=== PATIENT | male | born 1990 | race Caucasian/White ===

== ENCOUNTER 2016-08-03 19:53 | Emergency (ER) | payer MEDICAID ==
[~2016-08-03 19:53] MED LIST: COLACE100 MG PO; NOR10T PO
[2016-08-04] VITALS: BP 138/80
== END 2016-08-04 | disposition home or self-care (01) ==
LOC: ED 19:53
DX: N43.3 Hydrocele, unspecified (principal)
CPT/HCPCS: 87491; 87591; J0696; J1885; Q0092

== ENCOUNTER 2016-08-20 11:15 | Emergency (ER) | payer MEDICAID ==
[~2016-08-20] VITALS: Ht 177.8 cm; Wt 106.6 kg
[2016-08-20 13:09] VITALS: BP 109/57
== END 2016-08-20 13:09 | disposition home or self-care (01) ==
LOC: ED 11:15
DX: N50.812 Left testicular pain (principal)

== ENCOUNTER 2018-06-05 11:48 | Emergency (ER) | payer SELFPAY ==
[~2018-06-05] VITALS: Ht 180.3 cm; Wt 99.3 kg
[2018-06-05 11:55] VITALS: Ht 180.3 cm; Wt 99.3 kg
[2018-06-05 14:05] LABS: BASOPHIL % 0.9 % (0-2); PLATELET COUNT 253 x10^3mcL (130-400); RED CELL DISTRIBUTION WIDTH 12.9 % (11.5-14.5)
[2018-06-05 14:21] LABS: CALCIUM 8.4 mg/dL (8.5-10.1); CARBON DIOXIDE 26.7 mmol/L (21-32); CHLORIDE SERUM 102 mmol/L (98-107); CREATININE SERUM 0.7 mg/dL (0.7-1.3); GFR1 > 60 mL/min; GLUCOSE SERUM 98 mg/dL (74-106); POTASSIUM SERUM 3.7 mmol/L (3.5-5.1); SODIUM SERUM 140 mmol/L (136-145)
[2018-06-05 14:23] LABS: ALKALINE PHOSPHATASE 126 U/L (46-116); ALT/SGPT 493 U/L (16-63); AST/SGOT 540 U/L (15-37); BILIRUBIN TOTAL 0.59 mg/dL (0.20-1.00); LIPASE 125 IU/L (73-393)
[2018-06-05 14:28] LABS: TOTAL PROTEIN, SERUM 8.6 g/dL (6.4-8.2)
[2018-06-05 16:49] VITALS: BP 149/67
== END 2018-06-05 16:49 | disposition home or self-care (01) ==
LOC: ED 11:48
PROVIDERS: Emergency Medicine
DX: S60.221A Contusion of right hand, initial encounter (principal); K70.9 Alcoholic liver disease, unspecified; W18.30XA Fall on same level, unspecified, initial encounter; Y93.89 Activity, other specified; Y92.89 Other specified places as the place of occurrence of the external cause; Y99.8 Other external cause status
CPT/HCPCS: 36415; 90715; Q0092; Q0162

== ENCOUNTER 2018-11-07 12:05 | Emergency (ER) | payer MEDICAID ==
[~2018-11-07] VITALS: Ht 180.3 cm; Wt 104.3 kg
[2018-11-07 12:13] VITALS: Ht 180.3 cm; Wt 104.3 kg
[2018-11-07 14:50] VITALS: BP 147/84
== END 2018-11-07 14:50 | disposition home or self-care (01) ==
LOC: ED 12:05
DX: S93.402A Sprain of unspecified ligament of left ankle, initial encounter (principal); Z90.49 Acquired absence of other specified parts of digestive tract; X50.1XXA Overexertion from prolonged static or awkward postures, initial encounter; Y93.89 Activity, other specified; Y92.89 Other specified places as the place of occurrence of the external cause; Y99.8 Other external cause status
CPT/HCPCS: J1885; Q0092

== ENCOUNTER 2018-11-08 14:17 | Emergency (ER) | payer MEDICAID ==
[~2018-11-08] VITALS: Ht 177.8 cm; Wt 103.4 kg
[2018-11-08 14:20] VITALS: Ht 177.8 cm; Wt 103.4 kg
[2018-11-08 15:04] VITALS: BP 145/89
== END 2018-11-08 15:04 | disposition home or self-care (01) ==
LOC: ED 14:17
DX: S93.402D Sprain of unspecified ligament of left ankle, subsequent encounter (principal); R03.0 Elevated blood-pressure reading, without diagnosis of hypertension; Z13.828 Encounter for screening for other musculoskeletal disorder; X58.XXXD Exposure to other specified factors, subsequent encounter

== ENCOUNTER 2018-11-09 15:45 | Emergency (ER) | payer MEDICAID ==
[~2018-11-09] VITALS: Ht 180.3 cm; Wt 103.5 kg
[2018-11-09 15:52] VITALS: BP 122/64; Ht 180.3 cm; Wt 103.5 kg
== END 2018-11-09 16:53 | disposition home or self-care (01) ==
LOC: ED 15:45
DX: S99.912D Unspecified injury of left ankle, subsequent encounter (principal); X58.XXXD Exposure to other specified factors, subsequent encounter

== ENCOUNTER 2018-12-12 12:58 | Inpatient (IN) | payer MEDICAID ==
[~2018-12-12] VITALS: Ht 180.3 cm; Wt 105.7 kg
[2018-12-12 13:16] VITALS: Ht 180.3 cm; Wt 105.7 kg
--- NOTE | 2018-12-12 13:30 | NUR ---
PT BIB SELF ABD PAIN X 2 WKS STS HAD FOOD POISON AWAITING FOR DR TO [facility]
--- NOTE | 2018-12-12 13:51 | NUR ---
DR COREY AT BEDSIDE TO [facility]
--- NOTE | 2018-12-12 14:00 | NUR ---
TAKEN TO RADIOLOGY FOR CT
--- NOTE | 2018-12-12 14:12 | NUR ---
MEDICATED PT FOR PAIN. PLEASE SEE EMAR.
--- NOTE | 2018-12-12 14:15 | NUR ---
PROVIDED URINAL AT BEDSIDE FOR UA.
[2018-12-12 14:32] LABS: BASOPHIL % 0.7 % (0-2); PLATELET COUNT 181 x10^3mcL (130-400); RED CELL DISTRIBUTION WIDTH 13.7 % (11.5-14.5)
[2018-12-12 14:45] LABS: CHLORIDE SERUM 102 mmol/L (98-107); CREATININE SERUM 0.8 mg/dL (0.7-1.3); GFR1 > 60 mL/min; GLUCOSE SERUM 93 mg/dL (74-106); POTASSIUM SERUM 4.1 mmol/L (3.5-5.1); SODIUM SERUM 141 mmol/L (136-145)
[2018-12-12 14:49] LABS: ALBUMIN 3.9 g/dL (3.4-5.0); ALKALINE PHOSPHATASE 125 U/L (46-116); ALT/SGPT 308 U/L (16-63); AST/SGOT 249 U/L (15-37); BILIRUBIN TOTAL 1.3 mg/dL (0.20-1.00); LIPASE 118 IU/L (73-393); TOTAL PROTEIN, SERUM 8.1 g/dL (6.4-8.2)
[2018-12-12 15:01] LABS: UA SPECIFIC GRAVITY 1.015 (1.005-1.035); microscopic required? YES; urine erythrocyte NEGATIVE (NEGATIVE)
[2018-12-12 15:09] LABS: AMPHETAMINE QUAL UR NONE DETECTED (See below)
--- NOTE | 2018-12-12 16:12 | NUR ---
PT ADMIT TO MD ROOM 257B GAVE REPORT TO BLANQUITA
--- NOTE | 2018-12-12 16:40 | NUR ---
PT C/O OF ABD PAIN 02/17. GAVE TORADOL ORDERED. WILL CONTINUE TO MONITOR.
[2018-12-12 16:46] VITALS: BP 129/82
--- NOTE | 2018-12-12 16:56 | NUR ---
RECEIVED PT FROM ER, PT ADMIT FOR RECTAL BLEED, ABD PAIN, PT IS A/O X4, VERBAL RESPONSIVE, ABLE TO TELL WHAT HE NEEDS. LUNG SOUND CLEAR BILATERAL, NO COUGH, NO SOB, PT DENY ANY CHEST PAIN, BOWEL SOUND PRESENT ALL 4 QUADRANTS, NO DISTENTION, PT C/O ABD PAIN AT MID AND RADIATE TO RIGHT UPPER QUARANT, ALSO PT COMPLAIN HAD BLACK STOOL DAYS AGO. PEDAL PULSE PRESENT BOTH FEET, NO EDEMA, IV AT LEFT AC, NO LEAKING, NO INFILTRATION.ALL ADLS ASSIST, ALL NEED MET, CALL LIGHT IN REACH, WILL CONTINUE TO MONITOR.
--- NOTE | 2018-12-12 17:22 | NUR ---
PT EXPRESSED MINIMAL RELIEF OF ABD PAIN 10/18. REFUSED PAIN MED. WILL CONTINUE TO MONITOR.
--- NOTE | 2018-12-12 18:24 | NUR ---
PT RESTING IN BED TALKING ON THE PHONE. PT STATES ABD PAIN IS TOLERABLE AT THIS TIME. IV INTACT AND PATENT. CALL LIGHT WITHIN REACH. WILL CONTINUE TO MONITOR.
--- NOTE | 2018-12-12 19:30 | NUR ---
RECIEVED PT FROM DAY NURSE. PT RESTING IN BED COMFORTABLY. DENIES PAIN AT THIS TIME. A/O X4, CALM AND COOPERATIVE. MS PT, DENIES CP, N/V, DIZZINESS, AND PALPATATIONS. PALPABLE PULSES, NO EDEMA NOTED. BREATHING EVEN AND UNLABORED, DENIES SOB. ABD SOFT AND ROUND, EPIGASTRIC PAIN TO PALPATION. LAC IV, CDI AND INFUSING. BED AT LOWEST POSITION, CALL LIGHT WITHIN REACH, WILL CONTINUE TO MONITOR.
[2018-12-12 20:41] VITALS: BP 105/56
--- NOTE | 2018-12-13 | NUR ---
PT RESTING IN BED AT THIS TIME. DENIES PAIN OR DISCOMFORT. BREATHING E/U ON RA. NO SIGNS OF ACUTE DISTRESS AT THIS TIME. BED AT LOWEST POSITION. CALL LIGHT WITHIN REACH. WILL CONTINUE TO MONITOR.
[2018-12-13 05:33] VITALS: BP 119/73
--- NOTE | 2018-12-13 06:39 | NUR ---
PT RESTING IN BED COMFORTABLY. NO S/S OF PAIN AT THIS TIME. BREATHING E/U. NO SIGNIFICANT CHANGES THIS THIS. BED AT LOWEST POSITION. CALL LIGHT WITHIN REACH. WILL ENDORSE TO DAY NURSE.
[2018-12-13 06:51] LABS: BASOPHIL % 0.4 % (0-2); PLATELET COUNT 146 x10^3mcL (130-400); RED CELL DISTRIBUTION WIDTH 13.1 % (11.5-14.5)
[2018-12-13 07:01] LABS: CALCIUM 8.5 mg/dL (8.5-10.1); CARBON DIOXIDE 24.5 mmol/L (21-32); CHLORIDE SERUM 104 mmol/L (98-107); CREATININE SERUM 0.8 mg/dL (0.7-1.3); GFR1 > 60 mL/min; GLUCOSE SERUM 79 mg/dL (74-106); POTASSIUM SERUM 3.4 mmol/L (3.5-5.1); SODIUM SERUM 140 mmol/L (136-145)
--- NOTE | 2018-12-13 07:30 | NUR ---
PT ENDORSE TO ME THIS MORNING. LAYING IN BED RESTING, AA/ OX4, BREATHING EVEN AND AND UNLABORED ON RA, NO ACUTE RESP DISTRESS OR SOB NOTED. MEDSURG,DENIES ANY CP OR PRESSURE. LAST BM 12/12 FORMED PER NIGHT NURSE. VOIDS FREELY. AMB. IV TO THE RAC INTACT AND PATENT, INFUSING AT 100ML/ HR, NO REDNESS OR SWELLING NOTED, WILL CONTINUE TO MONITOR.
[2018-12-13 09:20] VITALS: BP 126/74
--- NOTE | 2018-12-13 09:29 | NUR ---
PT C/O OF ABD PAIN, MEDICATED PER EMAR.
--- NOTE | 2018-12-13 10:30 | NUR ---
PT LAYING IN BED RESTING, TOLERATED 100% OF BF, NO N/V NOTED. WILL CONTINUE TO MONITOR.
--- NOTE | 2018-12-13 14:30 | NUR ---
Discount pharmacy card and list to low cost medical clinics given to patient by Tip Caruso.
[2018-12-13 17:23] VITALS: BP 113/72
--- NOTE | 2018-12-13 19:34 | NUR ---
NO ACUTE CHANGES AT THIS TIME. WILL ENDORSE TO INCOMING RN.
--- NOTE | 2018-12-13 20:00 | NUR ---
RECEIVED PT IN BED, RESTING QUIETLY. A/O X4. RESP. EVEN AND UNLABORED. ON ROOM AIR, NO ACUTE DISTRESS NOTED. AFEBRILE AND VITAL SIGNS STABLE. DENIES CP , ABD. PAIN OR ANY DISCOMFORT AT THIS TIME. IVF, NS AT 100ML/HR, INTACT AND INFUSING VIA LAC, SITE CLEAR. AMBULATORY. NO COMPLAINTS NOTED AT THIS TIME. CALL LIGHT WITHIN REACH. WILL CONTINUE TO MONITOR.
[2018-12-13 20:18] VITALS: BP 122/76
--- NOTE | 2018-12-13 21:10 | NUR ---
COMPLAINED OF ABD. PAIN, 5/10, MEDICATED WITH TORADOL IV ORDERED. WILL CONTINUE TO MONITOR.
--- NOTE | 2018-12-13 22:10 | NUR ---
FOR PROCEDURE IN AM. CONSENT OBTAINED FROM PT. PT ALSO INSTRUCTED TO MAINTAIN NPO AFTER MN. PT VERBALIZED UNDERSTANDING. WILL CONTINUE TO MONITOR.
--- NOTE | 2018-12-14 00:02 | NUR ---
PT DOOZING OFF AND ON AT THIS TIME. STATES PAIN RELIEF. CALL LIGHT WITHIN REACH. WILL CONTINUE TO MONITOR.
--- NOTE | 2018-12-14 02:06 | NUR ---
RESTING QUIETLY IN BED, WITH EYES CLOSED, APPEARS ASLEEP, EASILY AROUSABLE. RESP. EVEN AND UNLABORED. NO ACUTE DISTRESS NOTED. IVF INTACT AND INFUSING WELL, SITE CLEAR. CALL LIGHT WITHIN REACH. WILL CONTINUE TO MONITOR.
[2018-12-14 05:44] VITALS: BP 127/73
--- NOTE | 2018-12-14 06:32 | NUR ---
SLEPT WELL. NO COMPLAINTS NOTED AT THIS TIME. AFEBRILE AND VITAL SIGNS STABLE.RESP. EVEN AND UNLABORED. NO ACUTE DISTRESS NOTED. NPO MAINTAINED. FOR PROCEDURE THIS AM. IVF INTACT AND INFUSING WELL. WILL ENDORSE TO INCOMING NURSE.
[2018-12-14 06:36] LABS: BASOPHIL % 0.4 % (0-2); PLATELET COUNT 157 x10^3mcL (130-400); RED CELL DISTRIBUTION WIDTH 13.3 % (11.5-14.5)
[2018-12-14 06:53] LABS: CALCIUM 9.2 mg/dL (8.5-10.1); CARBON DIOXIDE 28.3 mmol/L (21-32); CHLORIDE SERUM 103 mmol/L (98-107); CREATININE SERUM 0.9 mg/dL (0.7-1.3); GFR1 > 60 mL/min; GLUCOSE SERUM 84 mg/dL (74-106); SODIUM SERUM 140 mmol/L (136-145)
--- NOTE | 2018-12-14 07:30 | NUR ---
RECEIVED PATIENT IN BED APPEARS TO BE RESTING, AROUSED EASILY TO NAME. NPO FOR EGD THIS AM. PATIENT DENIES ANY RECTAL BLEEDING OR PAIN AT THIS TIME. IVF INFUSIG WELL TO LEFT A/C. WILL CONTINUE TO MONITOR.
--- NOTE | 2018-12-14 07:42 | NUR ---
PATIENT GOING DOWN TO GI LAB FOR EGD VIA [facility] AT THIS TIME. IV HEPLOCKED, PATIENT DENIES ANY PAIN OR RECTAL BLEEDING. NPO SINCE MIDNOC. WILL CONTINUE TO MONITOR UPON RETURN TO THE FLOOR
--- NOTE | 2018-12-14 09:32 | NUR ---
PATIENT RETURNED FROM G.I. LAB VIA GURNEY. AWAKE, ALERT DENIES ANY PAIN OR DISCOMFORT. NO N/V OR RECTAL BLEEDING NOTED. PATIENT NPO UNTIL LUNCH TODAY. IVF DC'D ORDERED. PATIENT INSTRUCTED TO CALL FOR ASSIST.
[2018-12-14 09:51] LABS: ALBUMIN 3.5 g/dL (3.4-5.0); BILIRUBIN DIRECT 0.78 mg/dL (0.0-0.2); BILIRUBIN TOTAL 1.6 mg/dL (0.20-1.00); TOTAL PROTEIN, SERUM 7.4 g/dL (6.4-8.2)
[2018-12-14 10:18] VITALS: BP 120/79
--- NOTE | 2018-12-14 13:30 | NUR ---
PATIENT'S PLAN OF CARE WAS DISCUSSED AND REVIEWED WITH RETAIL TEAM LEADER:JAMAAL ALLISON. I HAVE REVIEWED THE DATA COLLECTION BY RETAIL TEAM LEADER (NAME):JAMAAL ALLISON ENTERED ON (DATE/TIME):12/14/18. I CONCUR WITH THE DATA AND ANY EXCEPTIONS OR COMMENTS ARE LISTED BELOW:
--- NOTE | 2018-12-14 14:21 | NUR ---
1. Recommend continuing regular diet as tolerated.
--- NOTE | 2018-12-14 14:21 | NUR ---
Initial Nutrition Assessment: 257/B BERENICE ARGUELLES HR Dx: Rectal bleed, abd pain PMHx: none PSHx: Cholecystectomy Labs: AST 328H, ALT 397H Meds: Pepcid, toradol, zofran Diet: Regular PO Intake: (12/12) 50% lunch, 100% breakfast (on clear liquid) Ht: 180.34 cm (71") Wt: 105.6 kg (232#) BMI: 32.5 kg/m2Bed scale: 105.5 kg IBW: 172# (78 kg) %IBW: 134 UBW: unable to access Age: 28/M Food Allergies: NKFA Skin: intact Vipin: 23 Edema: none GI: Last BM: 12/12 Trigger: N/V/D >3d, poor PO >3d Per H&P, Pt is a 28-year old male who was seen and examined in the ER. According to patient for about 2 weeks he has been having epigastric pain associated with nausea and vomiting. Patient states that he noticed that he was having some dark stools. Patient was states that he eats fast food and puts lot of chili onto his food. RDN Visit (12/14): Went twice to patient's room but patient was sleeping. Spoke with RN Jethro, she said that patient tolerated regular diet very well and does not have any N/V/D/C. Patient has good appetite. Problem with: N/V/D/C: no Problems with: Chewing/Swallowing: none Current appetite: good (per RN) Recent wt change: unable to access %wt change: n/a Vitamin/Supplement use: unable to access Special diet at home: unable to access Physical activity: unable to access Nutrition education given: not possible at this time as patient was sleeping. Food-drug interactions: none Education given: n/a Estimated Nutritional Needs Based on adjusted body weight 85 kg Energy: 1062-4205 kcal/d (25-30 kcal/kg) Protein: 85-102 g/d (1.0-1.2 g/kg) - preserve LBM Fluid: 2629-0352 ml/d (1 ml/kcal) or per doctor Nutrition Diagnosis 1. Altered nutrition related lab values related to endocrine dysfunction as evidenced by AST 328H Intervention 1. Recommend continuing regular diet as tolerated. Monitor/Evaluate Goal: PO intake at least 75% of estimated needs Monitor: PO intake, Labs, GI function F/U in 7 days as low risk 12/21
--- NOTE | 2018-12-14 16:50 | NUR ---
PATIENT REQUESTING TO BE DISCHARGED HOME. TALHA BRADY CALLED, PER [employer] OPERATOR PATIENT IS NOT GOING TO BE DISCHARGED TODAY, IF PATIENT WANTS TO LEAVE HE WILL NEED TO SIGN OUT AMA. PATIENT INFORMED, AND REQUESTED TO SIGN OUT AMA. AMA FORM SIGNED. HILARIA CARVER'Shantel. PATIENT LEFT AT THIS TIME. PATIENT'S SISTER TO PICK HIM UP TO TAKE HIM HOME.
== END 2018-12-14 16:54 | disposition left against medical advice (07) | DRG 243 ==
LOC: ED 12:58 → MU 15:23
PROVIDERS: Emergency Medicine; Internal Medicine Gastroenterology; ADMIT Internal Medicine
PROC: 0DB78ZX Excision of Stomach, Pylorus, Via Natural or Artificial Opening Endoscopic, Diagnostic (ICD-10-PCS; principal; 2018-12-14 08:00)
DX: K21.9 Gastro-esophageal reflux disease without esophagitis (principal); K29.70 Gastritis, unspecified, without bleeding; Z68.31 Body mass index [BMI] 31.0-31.9, adult
CPT/HCPCS: 43235; 87046; 87046-59; G0378; J0696; J1200; J1610; J1885; J2250; J2310; J2405; J3010; J3490; J7030

== ENCOUNTER 2019-07-15 09:59 | Emergency (ER) | payer OTHER ==
[~2019-07-15] VITALS: Ht 172.7 cm; Wt 103.4 kg
[2019-07-15 10:08] VITALS: Ht 172.7 cm; Wt 103.4 kg
[2019-07-15 11:06] LABS: BASOPHIL % 0.1 % (0-2); PLATELET COUNT 163 x10^3mcL (130-400); RED CELL DISTRIBUTION WIDTH 14.1 % (11.5-14.5)
[2019-07-15 11:37] LABS: CARBON DIOXIDE 28.8 mmol/L (21-32); CHLORIDE SERUM 98 mmol/L (98-107); CREATININE SERUM 0.9 mg/dL (0.7-1.3); GFR1 > 60 mL/min; GLUCOSE SERUM 132 mg/dL (74-106); POTASSIUM SERUM 3.9 mmol/L (3.5-5.1); SODIUM SERUM 137 mmol/L (136-145)
[2019-07-15 11:41] LABS: ALBUMIN 3.5 g/dL (3.4-5.0); ALKALINE PHOSPHATASE 161 U/L (46-116); ALT/SGPT 231 U/L (16-63); AST/SGOT 353 U/L (15-37); BILIRUBIN TOTAL 1.5 mg/dL (0.20-1.00); LIPASE 118 IU/L (73-393)
[2019-07-15 11:46] LABS: TOTAL PROTEIN, SERUM 9.6 g/dL (6.4-8.2)
[2019-07-15 12:43] VITALS: BP 126/63
== END 2019-07-15 12:43 | disposition home or self-care (01) ==
LOC: ED 09:59
PROVIDERS: Emergency Medicine
DX: K29.20 Alcoholic gastritis without bleeding (principal)
CPT/HCPCS: J2270; J2405; J7030

== ENCOUNTER 2019-09-01 18:18 | Inpatient (IN) | payer OTHER ==
[~2019-09-01] VITALS: Ht 180.3 cm; Wt 102.5 kg
[2019-09-01 20:44] LABS: BASOPHIL % 0.7 % (0-2); PLATELET COUNT 234 x10^3mcL (130-400)
[2019-09-01 20:44] LABS: UA SPECIFIC GRAVITY 1.025 (1.005-1.035); microscopic required? YES; urine erythrocyte NEGATIVE (NEGATIVE)
[2019-09-01 20:46] LABS: RED CELL DISTRIBUTION WIDTH 16.9 % (11.5-14.5)
[2019-09-01 20:55] LABS: CALCIUM 7.8 mg/dL (8.5-10.1); CARBON DIOXIDE 27.3 mmol/L (21-32); CHLORIDE SERUM 99 mmol/L (98-107); CREATININE SERUM 0.8 mg/dL (0.7-1.3); GFR1 > 60 mL/min; GLUCOSE SERUM 82 mg/dL (74-106); POTASSIUM SERUM 3.2 mmol/L (3.5-5.1); SODIUM SERUM 136 mmol/L (136-145)
[2019-09-01 20:59] LABS: ALKALINE PHOSPHATASE 299 U/L (46-116); ALT/SGPT 52 U/L (16-63); AST/SGOT 264 U/L (15-37); BILIRUBIN TOTAL 6.63 mg/dL (0.20-1.00); LIPASE 87 IU/L (73-393)
[2019-09-01 21:00] LABS: ALBUMIN 2.4 g/dL (3.4-5.0); TOTAL PROTEIN, SERUM 8.3 g/dL (6.4-8.2)
[2019-09-01 23:48] VITALS: BP 126/80
[2019-09-01 23:51] VITALS: Ht 180.3 cm; Wt 102.5 kg
[2019-09-02 05:34] VITALS: BP 117/70
[2019-09-02 07:26] VITALS: BP 117/75
[2019-09-02 11:42] VITALS: BP 121/75
[2019-09-02 14:38] LABS: CALCIUM 8.4 mg/dL (8.5-10.1); CARBON DIOXIDE 29.4 mmol/L (21-32); CHLORIDE SERUM 98 mmol/L (98-107); CREATININE SERUM 0.8 mg/dL (0.7-1.3); GFR1 > 60 mL/min; GLUCOSE SERUM 124 mg/dL (74-106); POTASSIUM SERUM 3.9 mmol/L (3.5-5.1); SODIUM SERUM 133 mmol/L (136-145)
[2019-09-02 14:45] LABS: ALKALINE PHOSPHATASE 273 U/L (46-116); ALT/SGPT 47 U/L (16-63); BILIRUBIN TOTAL 7.84 mg/dL (0.20-1.00); TOTAL PROTEIN, SERUM 8.1 g/dL (6.4-8.2)
[2019-09-02 14:55] LABS: ALBUMIN 2.2 g/dL (3.4-5.0)
[2019-09-02 14:56] LABS: AST/SGOT 213 U/L (15-37)
[2019-09-02 15:57] VITALS: BP 120/73
[2019-09-02 20:28] VITALS: BP 115/72
[2019-09-03 05:32] VITALS: BP 110/65
[2019-09-03 08:37] VITALS: BP 112/66
[2019-09-03 09:52] LABS: BASOPHIL % 0.1 % (0-2); PLATELET COUNT 219 x10^3mcL (130-400)
[2019-09-03 10:04] LABS: RED CELL DISTRIBUTION WIDTH 17.3 % (11.5-14.5)
[2019-09-03 10:09] LABS: ALKALINE PHOSPHATASE 252 U/L (46-116); ALT/SGPT 42 U/L (16-63); AST/SGOT 175 U/L (15-37); BILIRUBIN TOTAL 6.74 mg/dL (0.20-1.00); CALCIUM 8.1 mg/dL (8.5-10.1); CARBON DIOXIDE 28.2 mmol/L (21-32); CHLORIDE SERUM 99 mmol/L (98-107); CREATININE SERUM 0.7 mg/dL (0.7-1.3); GFR1 > 60 mL/min; GLUCOSE SERUM 97 mg/dL (74-106); POTASSIUM SERUM 3.9 mmol/L (3.5-5.1); SODIUM SERUM 132 mmol/L (136-145); TOTAL PROTEIN, SERUM 7.8 g/dL (6.4-8.2)
[2019-09-03 10:12] LABS: ALBUMIN 2.1 g/dL (3.4-5.0)
[2019-09-03 11:12] VITALS: BP 112/66
== END 2019-09-03 12:16 | disposition home or self-care (01) | DRG 280 ==
LOC: ED 18:18 → MU 22:57
PROVIDERS: Emergency Medicine; Hospitalist; ADMIT Internal Medicine Pulmonary Disease
DX: K70.10 Alcoholic hepatitis without ascites (principal); K70.30 Alcoholic cirrhosis of liver without ascites; F10.20 Alcohol dependence, uncomplicated; Z90.49 Acquired absence of other specified parts of digestive tract; Y90.9 Presence of alcohol in blood, level not specified
CPT/HCPCS: G0378; J0696; J2270; J2405; J2543; J3490; J7030; J7060; J7509; Q0092

== ENCOUNTER 2019-09-08 21:04 | Emergency (ER) | payer OTHER ==
[~2019-09-08] VITALS: Ht 180.3 cm; Wt 99.8 kg
[2019-09-08 21:09] VITALS: Ht 180.3 cm; Wt 99.8 kg
[2019-09-08 21:34] LABS: BASOPHIL % 0.1 % (0-2); PLATELET COUNT 302 x10^3mcL (130-400)
[2019-09-08 21:35] LABS: RED CELL DISTRIBUTION WIDTH 17.8 % (11.5-14.5)
[2019-09-08 21:49] LABS: CALCIUM 8.4 mg/dL (8.5-10.1); CARBON DIOXIDE 26.6 mmol/L (21-32); CHLORIDE SERUM 98 mmol/L (98-107); CREATININE SERUM 0.9 mg/dL (0.7-1.3); GFR1 > 60 mL/min; GLUCOSE SERUM 97 mg/dL (74-106); POTASSIUM SERUM 3.6 mmol/L (3.5-5.1); SODIUM SERUM 131 mmol/L (136-145)
[2019-09-08 21:54] LABS: ALKALINE PHOSPHATASE 226 U/L (46-116); ALT/SGPT 58 U/L (16-63); AST/SGOT 186 U/L (15-37); BILIRUBIN TOTAL 11.34 mg/dL (0.20-1.00); TOTAL PROTEIN, SERUM 7.9 g/dL (6.4-8.2)
[2019-09-08 23:05] VITALS: BP 119/70
== END 2019-09-08 23:05 | disposition home or self-care (01) ==
LOC: ED 21:04
PROVIDERS: Emergency Medicine
DX: K70.10 Alcoholic hepatitis without ascites (principal); Z90.49 Acquired absence of other specified parts of digestive tract
CPT/HCPCS: 36415

== ENCOUNTER 2019-09-19 13:50 | Inpatient (IN) | payer OTHER, SELFPAY ==
[~2019-09-19] VITALS: Ht 180.3 cm; Wt 81.6 kg
[2019-09-19 14:57] LABS: CALCIUM 7.9 mg/dL (8.5-10.1); CARBON DIOXIDE 26.4 mmol/L (21-32); CHLORIDE SERUM 98 mmol/L (98-107); GFR1 > 60 mL/min; GLUCOSE SERUM 108 mg/dL (74-106); POTASSIUM SERUM 3.8 mmol/L (3.5-5.1); SODIUM SERUM 132 mmol/L (136-145)
[2019-09-19 15:00] LABS: PLATELET COUNT 407 x10^3mcL (130-400); RED CELL DISTRIBUTION WIDTH 18.6 % (11.5-14.5)
[2019-09-19 15:02] LABS: ALBUMIN 1.4 g/dL (3.4-5.0); ALKALINE PHOSPHATASE 174 U/L (46-116); ALT/SGPT 42 U/L (16-63); AST/SGOT 151 U/L (15-37); TOTAL PROTEIN, SERUM 7.2 g/dL (6.4-8.2)
[2019-09-19 15:04] LABS: BILIRUBIN TOTAL 15.5 mg/dL (0.20-1.00)
[2019-09-19 15:13] LABS: BAND NEUTROPHIL 3 % (0-10); BASOPHIL 0 % (0-2); MONOCYTE 3 % (0-7); SEGMENTED NEUTROPHILS 88 % (37-75); rbc morphology (normal/abnorm) ABNORMAL (NORMAL)
[2019-09-19 15:33] LABS: LIPASE 141 IU/L (73-393)
[2019-09-19 18:23] VITALS: BP 93/53
[2019-09-19 18:27] VITALS: Ht 180.3 cm; Wt 81.6 kg
[2019-09-19 20:16] VITALS: BP 112/61
[2019-09-19 22:04] VITALS: BP 93/53
[2019-09-20 04:29] VITALS: BP 104/48
[2019-09-20 07:22] LABS: PLATELET COUNT 350 x10^3mcL (130-400)
[2019-09-20 07:28] LABS: CALCIUM 7.6 mg/dL (8.5-10.1); CARBON DIOXIDE 25.2 mmol/L (21-32); CHLORIDE SERUM 101 mmol/L (98-107); CREATININE SERUM 0.8 mg/dL (0.7-1.3); GFR1 > 60 mL/min; GLUCOSE SERUM 84 mg/dL (74-106); POTASSIUM SERUM 3.7 mmol/L (3.5-5.1); SODIUM SERUM 134 mmol/L (136-145)
[2019-09-20 08:18] LABS: RED CELL DISTRIBUTION WIDTH 18.4 % (11.5-14.5)
[2019-09-20 08:57] VITALS: BP 113/69
[2019-09-20 12:30] VITALS: BP 110/68
[2019-09-20 13:24] LABS: BAND NEUTROPHIL 4 % (0-10); MONOCYTE 4 % (0-7); SEGMENTED NEUTROPHILS 85 % (37-75); rbc morphology (normal/abnorm) ABNORMAL (NORMAL)
[2019-09-20 22:16] VITALS: BP 107/62
[2019-09-20 22:36] VITALS: BP 100/55
[2019-09-21 06:38] VITALS: BP 106/67
[2019-09-21 07:30] VITALS: BP 118/71
[2019-09-21 08:30] LABS: ALKALINE PHOSPHATASE 168 U/L (46-116); ALT/SGPT 38 U/L (16-63); AST/SGOT 148 U/L (15-37); CALCIUM 7.7 mg/dL (8.5-10.1); CARBON DIOXIDE 25.3 mmol/L (21-32); CHLORIDE SERUM 99 mmol/L (98-107); CREATININE SERUM 0.8 mg/dL (0.7-1.3); GFR1 > 60 mL/min; GLUCOSE SERUM 79 mg/dL (74-106); POTASSIUM SERUM 3.7 mmol/L (3.5-5.1); SODIUM SERUM 134 mmol/L (136-145); TOTAL PROTEIN, SERUM 6.8 g/dL (6.4-8.2)
[2019-09-21 08:33] LABS: ALBUMIN 1.4 g/dL (3.4-5.0)
[2019-09-21 08:34] LABS: BILIRUBIN TOTAL 14.6 mg/dL (0.20-1.00)
[2019-09-21 09:23] LABS: PLATELET COUNT 361 x10^3mcL (130-400)
[2019-09-21 09:57] LABS: RED CELL DISTRIBUTION WIDTH 18.7 % (11.5-14.5)
[2019-09-21 11:31] LABS: BAND NEUTROPHIL 1 % (0-10); MONOCYTE 5 % (0-7); SEGMENTED NEUTROPHILS 90 % (37-75)
[2019-09-21 11:32] LABS: PLATELET MORPHOLOGY PLATELETS INCREASED; rbc morphology (normal/abnorm) ABNORMAL (NORMAL)
[2019-09-21 12:54] VITALS: BP 105/73
[2019-09-21 17:44] VITALS: BP 106/73
[2019-09-21 21:10] VITALS: BP 107/57
[2019-09-22 06:30] VITALS: BP 113/65
[2019-09-22 07:29] LABS: ALKALINE PHOSPHATASE 158 U/L (46-116); ALT/SGPT 38 U/L (16-63); AST/SGOT 144 U/L (15-37); CALCIUM 7.9 mg/dL (8.5-10.1); CARBON DIOXIDE 25.2 mmol/L (21-32); CHLORIDE SERUM 100 mmol/L (98-107); CREATININE SERUM 0.9 mg/dL (0.7-1.3); GFR1 > 60 mL/min; GLUCOSE SERUM 82 mg/dL (74-106); LIPASE 113 IU/L (73-393); POTASSIUM SERUM 3.4 mmol/L (3.5-5.1); SODIUM SERUM 134 mmol/L (136-145); TOTAL PROTEIN, SERUM 6.5 g/dL (6.4-8.2)
[2019-09-22 07:45] LABS: ALBUMIN 1.3 g/dL (3.4-5.0); BILIRUBIN TOTAL 13.9 mg/dL (0.20-1.00)
[2019-09-22 08:00] VITALS: BP 110/64
[2019-09-22 08:16] LABS: PLATELET COUNT 403 x10^3mcL (130-400); RED CELL DISTRIBUTION WIDTH 17.7 % (11.5-14.5)
[2019-09-22 09:33] LABS: BAND NEUTROPHIL 4 % (0-10); MONOCYTE 4 % (0-7); SEGMENTED NEUTROPHILS 89 % (37-75)
[2019-09-22 09:34] LABS: PLATELET MORPHOLOGY PLATELETS INCREASED; rbc morphology (normal/abnorm) ABNORMAL (NORMAL); tear drop cell (dacryocyte) 1+
[2019-09-22 11:30] VITALS: BP 110/61
[2019-09-22 16:28] VITALS: BP 110/61
[2019-09-22 17:35] VITALS: BP 114/66
[2019-09-22 22:00] VITALS: BP 110/61
[2019-09-23 05:50] VITALS: BP 115/68
[2019-09-23 07:09] LABS: PLATELET COUNT 332 x10^3mcL (130-400)
[2019-09-23 07:21] LABS: CALCIUM 7.7 mg/dL (8.5-10.1); CARBON DIOXIDE 24.7 mmol/L (21-32); CHLORIDE SERUM 101 mmol/L (98-107); CREATININE SERUM 0.9 mg/dL (0.7-1.3); GFR1 > 60 mL/min; GLUCOSE SERUM 94 mg/dL (74-106); POTASSIUM SERUM 4.1 mmol/L (3.5-5.1); SODIUM SERUM 133 mmol/L (136-145)
[2019-09-23 07:22] LABS: RED CELL DISTRIBUTION WIDTH 18.4 % (11.5-14.5)
[2019-09-23 08:05] VITALS: BP 110/70
[2019-09-23 08:30] VITALS: BP 116/63
[2019-09-23 09:49] LABS: BAND NEUTROPHIL 1 % (0-10); BASOPHIL 0 % (0-2); MONOCYTE 7 % (0-7); SEGMENTED NEUTROPHILS 78 % (37-75)
[2019-09-23 09:50] LABS: PLATELET MORPHOLOGY PLATELETS NORMAL; rbc morphology (normal/abnorm) ABNORMAL (NORMAL)
[2019-09-23 13:14] VITALS: BP 110/62
[2019-09-23 16:52] VITALS: BP 116/71
[2019-09-23 19:31] VITALS: BP 11/71; BP 111/71
[2019-09-24 05:20] VITALS: BP 114/63
[2019-09-24 07:41] LABS: PLATELET COUNT 345 x10^3mcL (130-400)
[2019-09-24 07:59] VITALS: BP 119/60
[2019-09-24 08:02] LABS: ALKALINE PHOSPHATASE 167 U/L (46-116); ALT/SGPT 39 U/L (16-63); AST/SGOT 177 U/L (15-37); CALCIUM 7.9 mg/dL (8.5-10.1); CARBON DIOXIDE 21.3 mmol/L (21-32); CHLORIDE SERUM 100 mmol/L (98-107); CREATININE SERUM 0.9 mg/dL (0.7-1.3); GFR1 > 60 mL/min; GLUCOSE SERUM 85 mg/dL (74-106); POTASSIUM SERUM 4.1 mmol/L (3.5-5.1); SODIUM SERUM 132 mmol/L (136-145); TOTAL PROTEIN, SERUM 7.1 g/dL (6.4-8.2)
[2019-09-24 08:05] LABS: ALBUMIN 1.4 g/dL (3.4-5.0)
[2019-09-24 08:06] LABS: BILIRUBIN TOTAL 15.5 mg/dL (0.20-1.00)
[2019-09-24 08:44] LABS: RED CELL DISTRIBUTION WIDTH 18.7 % (11.5-14.5)
[2019-09-24 11:37] VITALS: BP 119/71
[2019-09-24 12:51] LABS: BAND NEUTROPHIL 7 % (0-10); MONOCYTE 5 % (0-7); SEGMENTED NEUTROPHILS 79 % (37-75)
[2019-09-24 12:52] LABS: PLATELET MORPHOLOGY PLATELETS NORMAL; rbc morphology (normal/abnorm) ABNORMAL (NORMAL)
[2019-09-24 15:23] VITALS: BP 122/78
[2019-09-24 19:21] VITALS: BP 119/78
[2019-09-25 05:16] VITALS: BP 111/73
[2019-09-25 07:23] LABS: CALCIUM 7.8 mg/dL (8.5-10.1); CARBON DIOXIDE 22.9 mmol/L (21-32); CHLORIDE SERUM 104 mmol/L (98-107); CREATININE SERUM 0.8 mg/dL (0.7-1.3); GFR1 > 60 mL/min; GLUCOSE SERUM 102 mg/dL (74-106); POTASSIUM SERUM 4.6 mmol/L (3.5-5.1); SODIUM SERUM 135 mmol/L (136-145)
[2019-09-25 07:39] LABS: PLATELET COUNT 331 x10^3mcL (130-400)
[2019-09-25 07:40] VITALS: BP 118/74
[2019-09-25 07:40] LABS: RED CELL DISTRIBUTION WIDTH 18.8 % (11.5-14.5)
[2019-09-25 11:29] VITALS: BP 109/66
[2019-09-25 13:17] LABS: BAND NEUTROPHIL 5 % (0-10); MONOCYTE 3 % (0-7); SEGMENTED NEUTROPHILS 82 % (37-75); rbc morphology (normal/abnorm) ABNORMAL (NORMAL)
[2019-09-25 13:18] LABS: PLATELET MORPHOLOGY PLATELETS NORMAL
[2019-09-25 15:59] VITALS: BP 140/65
== END 2019-09-25 18:41 | disposition left against medical advice (07) | DRG 720 ==
LOC: ED 13:50 → DU 16:54
PROVIDERS: Emergency Medicine; Internal Medicine Pulmonary Disease; ADMIT Internal Medicine
DX: A41.9 Sepsis, unspecified organism (principal); J18.9 Pneumonia, unspecified organism; K70.10 Alcoholic hepatitis without ascites; Z53.29 Procedure and treatment not carried out because of patient's decision for other reasons; Z20.828 Contact with and (suspected) exposure to other viral communicable diseases; Z90.49 Acquired absence of other specified parts of digestive tract; Z68.25 Body mass index [BMI] 25.0-25.9, adult
CPT/HCPCS: 83880; 85378; 87804; C9113; G0378; G0480; J0456; J0696; J1650; J2405; J3480; J3490; J3535; J7030; J7040; J7050; J7060; J7510; P9047; Q0092; Q9967

== ENCOUNTER 2019-09-29 17:08 | Inpatient (IN) | payer OTHER ==
[~2019-09-29] VITALS: Ht 180.3 cm; Wt 101.6 kg
[2019-09-29 17:13] VITALS: Ht 180.3 cm; Wt 101.6 kg
[2019-09-29 17:54] LABS: PLATELET COUNT 311 x10^3mcL (130-400)
[2019-09-29 18:04] LABS: CALCIUM 7.9 mg/dL (8.5-10.1); CARBON DIOXIDE 23.5 mmol/L (21-32); CHLORIDE SERUM 101 mmol/L (98-107); CREATININE SERUM 1.2 mg/dL (0.7-1.3); GFR1 > 60 mL/min; GLUCOSE SERUM 105 mg/dL (74-106); POTASSIUM SERUM 3.8 mmol/L (3.5-5.1); SODIUM SERUM 135 mmol/L (136-145)
[2019-09-29 18:08] LABS: ALKALINE PHOSPHATASE 180 U/L (46-116); ALT/SGPT 41 U/L (16-63); AST/SGOT 132 U/L (15-37); TOTAL PROTEIN, SERUM 6.7 g/dL (6.4-8.2)
[2019-09-29 18:15] LABS: RED CELL DISTRIBUTION WIDTH 18.8 % (11.5-14.5)
[2019-09-29 18:20] LABS: ALBUMIN 1.4 g/dL (3.4-5.0); BILIRUBIN TOTAL 18.14 mg/dL (0.20-1.00); CHOLESTEROL 76 mg/dL (<200); HDL CHOLESTEROL 10 mg/dL (40-60)
[2019-09-29 18:52] LABS: BAND NEUTROPHIL 3 % (0-10); BASOPHIL 0 % (0-2); SEGMENTED NEUTROPHILS 83 % (37-75); rbc morphology (normal/abnorm) ABNORMAL (NORMAL)
[2019-09-29 19:14] LABS: microscopic required? YES; urine erythrocyte NEGATIVE (NEGATIVE)
[2019-09-29 21:20] VITALS: BP 116/69
[2019-09-30 00:56] LABS: MAGNESIUM 2.3 mg/dL (1.8-2.4)
[2019-09-30 05:01] VITALS: BP 102/64
[2019-09-30 07:12] LABS: ALKALINE PHOSPHATASE 164 U/L (46-116); ALT/SGPT 35 U/L (16-63); AST/SGOT 122 U/L (15-37); BILIRUBIN DIRECT 13.52 mg/dL (0.0-0.2); CALCIUM 7.7 mg/dL (8.5-10.1); CARBON DIOXIDE 24.1 mmol/L (21-32); CHLORIDE SERUM 103 mmol/L (98-107); GFR1 > 60 mL/min; GLUCOSE SERUM 83 mg/dL (74-106); POTASSIUM SERUM 3.8 mmol/L (3.5-5.1); SODIUM SERUM 136 mmol/L (136-145)
[2019-09-30 07:15] LABS: ALBUMIN 1.2 g/dL (3.4-5.0)
[2019-09-30 07:19] LABS: PLATELET COUNT 256 x10^3mcL (130-400)
[2019-09-30 07:38] LABS: RED CELL DISTRIBUTION WIDTH 18.3 % (11.5-14.5)
[2019-09-30 07:42] VITALS: BP 99/61
[2019-09-30 11:55] VITALS: BP 105/61
[2019-09-30 11:57] LABS: SEGMENTED NEUTROPHILS 84 % (37-75)
[2019-09-30 11:58] LABS: BAND NEUTROPHIL 2 % (0-10); MONOCYTE 4 % (0-7); rbc morphology (normal/abnorm) ABNORMAL (NORMAL)
[2019-09-30 16:21] VITALS: BP 108/51
[2019-09-30 21:15] VITALS: BP 107/63
[2019-10-01 05:39] VITALS: BP 107/62
[2019-10-01 09:01] VITALS: BP 108/65
[2019-10-01 13:48] VITALS: BP 102/61
[2019-10-01 17:29] VITALS: BP 110/67
[2019-10-01 20:26] VITALS: BP 102/58
[2019-10-02 05:32] VITALS: BP 111/63
[2019-10-02 06:43] LABS: PLATELET COUNT 268 x10^3mcL (130-400)
[2019-10-02 06:56] LABS: CALCIUM 7.4 mg/dL (8.5-10.1); CHLORIDE SERUM 104 mmol/L (98-107); CREATININE SERUM 1.3 mg/dL (0.7-1.3); GFR1 > 60 mL/min; GLUCOSE SERUM 86 mg/dL (74-106); POTASSIUM SERUM 3.6 mmol/L (3.5-5.1); SODIUM SERUM 134 mmol/L (136-145)
[2019-10-02 07:34] LABS: RED CELL DISTRIBUTION WIDTH 19.4 % (11.5-14.5)
[2019-10-02 07:47] LABS: BILIRUBIN DIRECT 14.55 mg/dL (0.0-0.2)
[2019-10-02 07:53] LABS: ALBUMIN 1.2 g/dL (3.4-5.0); TOTAL PROTEIN, SERUM 5.7 g/dL (6.4-8.2)
[2019-10-02 07:56] LABS: BILIRUBIN TOTAL 17.2 mg/dL (0.20-1.00)
[2019-10-02 08:26] LABS: BAND NEUTROPHIL 1 % (0-10); BASOPHIL 0 % (0-2); MONOCYTE 9 % (0-7); SEGMENTED NEUTROPHILS 86 % (37-75)
[2019-10-02 08:27] LABS: rbc morphology (normal/abnorm) ABNORMAL (NORMAL)
[2019-10-02 08:28] LABS: PLATELET MORPHOLOGY PLATELETS INCREASED
[2019-10-02 08:45] VITALS: BP 117/67
[2019-10-02 13:13] VITALS: BP 115/58
[2019-10-02 17:21] VITALS: BP 109/62
[2019-10-02 20:40] VITALS: BP 119/68
[2019-10-03 05:39] VITALS: BP 110/64
[2019-10-03 07:10] LABS: ALKALINE PHOSPHATASE 195 U/L (46-116); ALT/SGPT 31 U/L (16-63); AST/SGOT 112 U/L (15-37); CALCIUM 7.4 mg/dL (8.5-10.1); CARBON DIOXIDE 21.8 mmol/L (21-32); CHLORIDE SERUM 104 mmol/L (98-107); CREATININE SERUM 1.3 mg/dL (0.7-1.3); GFR1 > 60 mL/min; GLUCOSE SERUM 82 mg/dL (74-106); MAGNESIUM 2.3 mg/dL (1.8-2.4); POTASSIUM SERUM 3.9 mmol/L (3.5-5.1); SODIUM SERUM 135 mmol/L (136-145); TOTAL PROTEIN, SERUM 6.2 g/dL (6.4-8.2)
[2019-10-03 07:15] LABS: ALBUMIN 1.1 g/dL (3.4-5.0); BILIRUBIN TOTAL 17.99 mg/dL (0.20-1.00)
[2019-10-03 08:00] LABS: PLATELET COUNT 274 x10^3mcL (130-400)
[2019-10-03 08:26] VITALS: BP 108/55
[2019-10-03 11:56] LABS: BAND NEUTROPHIL 2 % (0-10); MONOCYTE 4 % (0-7); SEGMENTED NEUTROPHILS 87 % (37-75); rbc morphology (normal/abnorm) ABNORMAL (NORMAL)
[2019-10-03 12:21] VITALS: BP 118/66
[2019-10-03 18:16] VITALS: BP 110/63
[2019-10-03 19:53] VITALS: BP 96/50
[2019-10-03 23:00] VITALS: BP 106/66
[2019-10-04 05:59] VITALS: BP 101/56
[2019-10-04 06:42] LABS: PLATELET COUNT 274 x10^3mcL (130-400)
[2019-10-04 07:11] LABS: ALBUMIN 1.1 g/dL (3.4-5.0); CALCIUM 7.6 mg/dL (8.5-10.1); CARBON DIOXIDE 21.5 mmol/L (21-32); CREATININE SERUM 1.6 mg/dL (0.7-1.3); MAGNESIUM 2.3 mg/dL (1.8-2.4); POTASSIUM SERUM 3.9 mmol/L (3.5-5.1)
[2019-10-04 07:13] LABS: BILIRUBIN TOTAL 18.45 mg/dL (0.20-1.00)
[2019-10-04 07:45] LABS: RED CELL DISTRIBUTION WIDTH 18.4 % (11.5-14.5)
[2019-10-04 08:10] VITALS: BP 101/52
[2019-10-04 09:50] LABS: BAND NEUTROPHIL 0 % (0-10); BASOPHIL 0 % (0-2); MONOCYTE 7 % (0-7); SEGMENTED NEUTROPHILS 91 % (37-75)
[2019-10-04 09:52] LABS: PLATELET MORPHOLOGY PLATELETS INCREASED; rbc morphology (normal/abnorm) ABNORMAL (NORMAL)
[2019-10-04 12:43] VITALS: BP 105/62
[2019-10-04 17:06] VITALS: BP 110/68
[2019-10-04 19:31] VITALS: BP 116/71
[2019-10-05 05:25] VITALS: BP 118/72
[2019-10-05 06:58] LABS: PLATELET COUNT 276 x10^3mcL (130-400)
[2019-10-05 07:12] LABS: RED CELL DISTRIBUTION WIDTH 18.7 % (11.5-14.5)
[2019-10-05 07:13] LABS: CALCIUM 7.6 mg/dL (8.5-10.1); CARBON DIOXIDE 20.8 mmol/L (21-32); CREATININE SERUM 2.1 mg/dL (0.7-1.3); POTASSIUM SERUM 4.2 mmol/L (3.5-5.1)
[2019-10-05 07:14] LABS: ALBUMIN 1.2 g/dL (3.4-5.0); TOTAL PROTEIN, SERUM 5.8 g/dL (6.4-8.2)
[2019-10-05 07:17] LABS: BILIRUBIN TOTAL 18.3 mg/dL (0.20-1.00)
[2019-10-05 08:09] VITALS: BP 115/66
[2019-10-05 10:09] LABS: BAND NEUTROPHIL 3 % (0-10); BASOPHIL 0 % (0-2); MONOCYTE 5 % (0-7); SEGMENTED NEUTROPHILS 86 % (37-75)
[2019-10-05 10:12] LABS: PLATELET MORPHOLOGY PLATELETS NORMAL; rbc morphology (normal/abnorm) ABNORMAL (NORMAL)
[2019-10-05 11:57] VITALS: BP 122/77
[2019-10-05 16:56] VITALS: BP 117/76
[2019-10-05 21:21] VITALS: BP 105/62
[2019-10-06 05:49] VITALS: BP 108/64
[2019-10-06 07:20] LABS: CALCIUM 7.4 mg/dL (8.5-10.1); CARBON DIOXIDE 19.9 mmol/L (21-32); CREATININE SERUM 2.6 mg/dL (0.7-1.3); POTASSIUM SERUM 4.5 mmol/L (3.5-5.1); TOTAL PROTEIN, SERUM 6.7 g/dL (6.4-8.2)
[2019-10-06 07:24] LABS: ALBUMIN 1.7 g/dL (3.4-5.0); PLATELET COUNT 311 x10^3mcL (130-400)
[2019-10-06 07:25] LABS: BILIRUBIN TOTAL 19.6 mg/dL (0.20-1.00)
[2019-10-06 08:02] VITALS: BP 124/78
[2019-10-06 09:21] LABS: BAND NEUTROPHIL 6 % (0-10); MONOCYTE 4 % (0-7); SEGMENTED NEUTROPHILS 82 % (37-75); rbc morphology (normal/abnorm) ABNORMAL (NORMAL)
[2019-10-06 16:25] VITALS: BP 135/84
[2019-10-06 17:10] LABS: microscopic required? YES; urine erythrocyte NEGATIVE (NEGATIVE)
[2019-10-06 20:38] VITALS: BP 122/70
[2019-10-07 06:21] VITALS: BP 114/65
[2019-10-07 06:41] LABS: PLATELET COUNT 269 x10^3mcL (130-400)
[2019-10-07 07:11] LABS: CALCIUM 7.7 mg/dL (8.5-10.1); CARBON DIOXIDE 20.1 mmol/L (21-32); CREATININE SERUM 2.9 mg/dL (0.7-1.3); POTASSIUM SERUM 4.6 mmol/L (3.5-5.1)
[2019-10-07 07:20] VITALS: BP 124/74
[2019-10-07 07:20] LABS: RED CELL DISTRIBUTION WIDTH 19.2 % (11.5-14.5)
[2019-10-07 07:38] LABS: TOTAL PROTEIN, SERUM 6.3 g/dL (6.4-8.2)
[2019-10-07 08:27] LABS: BILIRUBIN TOTAL 16.77 mg/dL (0.20-1.00)
[2019-10-07 10:37] LABS: BAND NEUTROPHIL 5 % (0-10); BASOPHIL 0 % (0-2); MONOCYTE 4 % (0-7); SEGMENTED NEUTROPHILS 82 % (37-75)
[2019-10-07 10:38] LABS: rbc morphology (normal/abnorm) ABNORMAL (NORMAL)
[2019-10-07 13:30] VITALS: BP 135/85
[2019-10-07 16:10] VITALS: BP 132/78
[2019-10-07 17:46] VITALS: BP 135/85
== END 2019-10-07 20:05 | disposition short-term general hospital (02) | DRG 279 ==
LOC: ED 17:08 → DU 19:21
PROVIDERS: Emergency Medicine; Hospitalist; Internal Medicine; Internal Medicine Pulmonary Disease; ADMIT Internal Medicine Pulmonary Disease
DX: K72.90 Hepatic failure, unspecified without coma (principal); J18.9 Pneumonia, unspecified organism; E44.0 Moderate protein-calorie malnutrition; N17.9 Acute kidney failure, unspecified; K70.10 Alcoholic hepatitis without ascites; D72.823 Leukemoid reaction; K70.30 Alcoholic cirrhosis of liver without ascites; E80.6 Other disorders of bilirubin metabolism; J98.11 Atelectasis; Z20.828 Contact with and (suspected) exposure to other viral communicable diseases; F10.10 Alcohol abuse, uncomplicated; Y90.9 Presence of alcohol in blood, level not specified; Z90.49 Acquired absence of other specified parts of digestive tract; Z68.31 Body mass index [BMI] 31.0-31.9, adult; Z23 Encounter for immunization; Z79.899 Other long term (current) drug therapy
CPT/HCPCS: 74181; 83880; 90732; C9113; G0378; J0456; J0696; J1940; J2354; J2405; J3430; J3480; J3490; J7030; J7050; J7510; P9047; Q0092; U0003-CS

== ENCOUNTER 2019-10-12 22:29 | Inpatient (IN) | payer OTHER ==
[~2019-10-12] VITALS: Ht 180.3 cm; Wt 108.9 kg
[2019-10-12 22:37] VITALS: BP 132/92
[2019-10-13 05:29] VITALS: BP 123/69
[2019-10-13 06:26] LABS: PLATELET COUNT 232 x10^3mcL (130-400)
[2019-10-13 06:50] LABS: RED CELL DISTRIBUTION WIDTH 18.9 % (11.5-14.5)
[2019-10-13 08:13] VITALS: BP 130/78
[2019-10-13 09:39] LABS: BAND NEUTROPHIL 17 % (0-10); BASOPHIL 0 % (0-2); MONOCYTE 4 % (0-7); SEGMENTED NEUTROPHILS 73 % (37-75)
[2019-10-13 09:41] LABS: rbc morphology (normal/abnorm) ABNORMAL (NORMAL)
[2019-10-13 09:42] LABS: PLATELET MORPHOLOGY LARGE PLATELET SEEN; target cell (codocyte) 2+; tear drop cell (dacryocyte) 1+
[2019-10-13 11:01] LABS: CALCIUM 7.9 mg/dL (8.5-10.1); CARBON DIOXIDE 19.6 mmol/L (21-32); POTASSIUM SERUM 4.4 mmol/L (3.5-5.1)
[2019-10-13 12:35] LABS: UA SPECIFIC GRAVITY 1.015 (1.005-1.035); microscopic required? YES; urine erythrocyte 1+ (NEGATIVE)
[2019-10-13 16:16] VITALS: BP 116/61
[2019-10-13 17:58] VITALS: BP 116/61
[2019-10-13 20:36] VITALS: BP 111/53
[2019-10-14 05:13] VITALS: BP 103/53
[2019-10-14 07:29] LABS: CALCIUM 8.1 mg/dL (8.5-10.1); CARBON DIOXIDE 21.5 mmol/L (21-32); CREATININE SERUM 2.3 mg/dL (0.7-1.3); MAGNESIUM 1.8 mg/dL (1.8-2.4); POTASSIUM SERUM 4.1 mmol/L (3.5-5.1)
[2019-10-14 07:31] LABS: ALBUMIN 2.5 g/dL (3.4-5.0); TOTAL PROTEIN, SERUM 6.1 g/dL (6.4-8.2)
[2019-10-14 07:33] LABS: BILIRUBIN TOTAL 19.7 mg/dL (0.20-1.00)
[2019-10-14 09:20] VITALS: BP 106/60
[2019-10-14 09:39] LABS: PLATELET COUNT 204 x10^3mcL (130-400)
[2019-10-14 12:38] VITALS: BP 107/59
[2019-10-14 14:12] LABS: BAND NEUTROPHIL 41 % (0-10); SEGMENTED NEUTROPHILS 3 % (37-75)
[2019-10-14 14:24] LABS: rbc morphology (normal/abnorm) ABNORMAL (NORMAL)
[2019-10-14 17:36] VITALS: BP 112/65
[2019-10-14 20:40] VITALS: BP 109/57
[2019-10-15 05:00] VITALS: BP 116/65
[2019-10-15 05:54] VITALS: BP 116/65
[2019-10-15 07:50] LABS: MAGNESIUM 1.9 mg/dL (1.8-2.4); PHOSPHOROUS 5.8 mg/dL (2.5-4.9)
[2019-10-15 07:56] VITALS: BP 123/68
[2019-10-15] MEDS ORDERED: LASIX40 MG PO (09:28)
[2019-10-15] MEDS ORDERED: Z5 PO (09:28)
[2019-10-15] MEDS ORDERED: K-TAB8 MEQ PO (09:29)
[2019-10-15] MEDS ORDERED: ENULOSE10 GM/151 PO (09:29)
[2019-10-15 10:22] LABS: CALCIUM 8.4 mg/dL (8.5-10.1); CARBON DIOXIDE 30.1 mmol/L (21-32); CREATININE SERUM 2.7 mg/dL (0.7-1.3); POTASSIUM SERUM 3.4 mmol/L (3.5-5.1); TOTAL PROTEIN, SERUM 6.2 g/dL (6.4-8.2)
[2019-10-15 10:35] LABS: ALBUMIN 2.9 g/dL (3.4-5.0)
[2019-10-15 10:37] LABS: BILIRUBIN TOTAL 20.44 mg/dL (0.20-1.00)
[2019-10-15 11:04] VITALS: BP 123/68
[2019-10-15 12:30] VITALS: BP 111/72
[2019-10-15 14:39] LABS: PLATELET COUNT 191 x10^3mcL (130-400)
[2019-10-15 14:57] LABS: RED CELL DISTRIBUTION WIDTH 18.7 % (11.5-14.5)
[2019-10-15 15:22] LABS: MONOCYTE 7 % (0-7); SEGMENTED NEUTROPHILS 90 % (37-75)
[2019-10-15 15:23] LABS: BAND NEUTROPHIL 1 % (0-10); BASOPHIL 0 % (0-2); rbc morphology (normal/abnorm) ABNORMAL (NORMAL)
[2019-10-15 15:24] LABS: target cell (codocyte) 1+
[2019-10-15 15:25] LABS: PLATELET MORPHOLOGY PLATELETS INCREASED
== END 2019-10-15 13:55 | disposition home or self-care (01) | DRG 280 ==
LOC: MU 22:29 → DU 10-13 18:39 → MU 10-14 06:07
PROVIDERS: Internal Medicine Nephrology; Internal Medicine Pulmonary Disease; ADMIT Internal Medicine; ATTEND Internal Medicine
DX: K70.40 Alcoholic hepatic failure without coma (principal); K70.11 Alcoholic hepatitis with ascites; J96.01 Acute respiratory failure with hypoxia; N17.0 Acute kidney failure with tubular necrosis; K70.31 Alcoholic cirrhosis of liver with ascites; F10.10 Alcohol abuse, uncomplicated; D72.829 Elevated white blood cell count, unspecified; D64.9 Anemia, unspecified; N18.9 Chronic kidney disease, unspecified; I50.9 Heart failure, unspecified; Z79.899 Other long term (current) drug therapy
CPT/HCPCS: 97116-GP; G0378; J1644; J1940; J2405; J2765; J3490; J7512; P9047; Q0092

== ENCOUNTER 2019-11-22 19:56 | Inpatient (IN) | payer OTHER ==
[~2019-11-22] VITALS: Ht 175.3 cm; Wt 87.2 kg
[~2019-11-22 19:56] MED LIST changes: +ENULOSE10 GM/151 PO; +K-TAB8 MEQ PO; +LASIX40 MG PO; +Z5 PO
[2019-11-22 20:20] VITALS: Ht 175.3 cm; Wt 87.2 kg
[2019-11-23 00:51] LABS: BASOPHIL % 0.4 % (0-2); PLATELET COUNT 218 x10^3mcL (130-400)
[2019-11-23 00:52] LABS: RED CELL DISTRIBUTION WIDTH 14.7 % (11.5-14.5)
[2019-11-23 00:58] LABS: ALBUMIN 3.6 g/dL (3.4-5.0); BILIRUBIN TOTAL 7.19 mg/dL (0.20-1.00); CALCIUM 9.8 mg/dL (8.5-10.1); CARBON DIOXIDE 24.5 mmol/L (21-32); CREATININE SERUM 1.8 mg/dL (0.7-1.3); POTASSIUM SERUM 4.3 mmol/L (3.5-5.1)
[2019-11-23 00:59] LABS: TOTAL PROTEIN, SERUM 9.3 g/dL (6.4-8.2)
[2019-11-23] MEDS ORDERED: ALD25 PO (02:25)
[2019-11-23] MEDS ORDERED: PROPRANOLOL HCL10 MG PO (02:26)
[2019-11-23 03:51] VITALS: BP 113/63
[2019-11-23 04:26] LABS: PHOSPHOROUS 4.7 mg/dL (2.5-4.9)
[2019-11-23 04:27] LABS: CHOLESTEROL/HDL RATIO 4.2
[2019-11-23 04:35] LABS: T3 TOTAL 1.45 ng/mL
[2019-11-23 04:41] LABS: FREE T4 1.51 ng/dL (0.76-1.46); FREE THYROXINE INDEX 3.4 ug/dL (1.4-4.5); T4(THYROXINE) 10.1 ug/dL (4.7-13.3)
[2019-11-23 06:12] VITALS: BP 102/55
[2019-11-23 07:38] LABS: BASOPHIL % 0.4 % (0-2); PLATELET COUNT 187 x10^3mcL (130-400); RED CELL DISTRIBUTION WIDTH 14.4 % (11.5-14.5)
[2019-11-23 08:00] LABS: CALCIUM 9.7 mg/dL (8.5-10.1); CARBON DIOXIDE 24.7 mmol/L (21-32); CREATININE SERUM 1.7 mg/dL (0.7-1.3); POTASSIUM SERUM 4.9 mmol/L (3.5-5.1)
[2019-11-23 09:06] VITALS: BP 105/55
[2019-11-23 12:13] VITALS: BP 110/76
[2019-11-23 17:46] VITALS: BP 97/63
== END 2019-11-23 20:41 | disposition left against medical advice (07) | DRG 242 ==
LOC: ED 19:56 → MU 11-23 02:03 → DU 11-23 17:43
PROVIDERS: Emergency Medicine; Family Medicine; Internal Medicine Gastroenterology; ADMIT Internal Medicine; ATTEND Internal Medicine
PROC: 0DB78ZX Excision of Stomach, Pylorus, Via Natural or Artificial Opening Endoscopic, Diagnostic (ICD-10-PCS; principal; 2019-11-23 11:15)
PROC: 06L38CZ Occlusion of Esophageal Vein with Extraluminal Device, Via Natural or Artificial Opening Endoscopic (ICD-10-PCS; 2019-11-23 11:15)
DX: I85.01 Esophageal varices with bleeding (principal); N17.0 Acute kidney failure with tubular necrosis; K76.7 Hepatorenal syndrome; E87.1 Hypo-osmolality and hyponatremia; I10 Essential (primary) hypertension; D64.9 Anemia, unspecified; E80.6 Other disorders of bilirubin metabolism; K70.30 Alcoholic cirrhosis of liver without ascites; Z53.29 Procedure and treatment not carried out because of patient's decision for other reasons; R74.0 Nonspecific elevation of levels of transaminase and lactic acid dehydrogenase [LDH]; R79.89 Other specified abnormal findings of blood chemistry; Z90.49 Acquired absence of other specified parts of digestive tract; Z79.899 Other long term (current) drug therapy
CPT/HCPCS: 43235; 83880; 84439; C9113; G0378; G0480; J0696; J1200; J1610; J1940; J2250; J2310; J3010; J3490; J7030; J7060; Q0092

== ENCOUNTER 2019-12-06 22:42 | Emergency (ER) | payer OTHER ==
[~2019-12-06] VITALS: Ht 180.3 cm; Wt 86.2 kg
[~2019-12-06 22:42] MED LIST changes: +ALD25 PO; +PROPRANOLOL HCL10 MG PO
[2019-12-06 22:46] VITALS: Ht 180.3 cm; Wt 86.2 kg
[2019-12-06 23:32] LABS: CALCIUM 9.5 mg/dL (8.5-10.1); CARBON DIOXIDE 26.4 mmol/L (21-32); CREATININE SERUM 2.1 mg/dL (0.7-1.3); POTASSIUM SERUM 4.1 mmol/L (3.5-5.1)
[2019-12-06 23:34] LABS: ALBUMIN 3.6 g/dL (3.4-5.0); BILIRUBIN DIRECT 3.11 mg/dL (0.0-0.2); BILIRUBIN TOTAL 5.5 mg/dL (0.20-1.00); TOTAL PROTEIN, SERUM 9.4 g/dL (6.4-8.2)
[2019-12-06 23:36] LABS: BASOPHIL % 0.4 % (0-2); PLATELET COUNT 256 x10^3mcL (130-400); RED CELL DISTRIBUTION WIDTH 12.9 % (11.5-14.5)
[2019-12-07 00:02] VITALS: BP 115/69
== END 2019-12-07 00:02 | disposition home or self-care (01) ==
LOC: ED 22:42
PROVIDERS: Student in an Organized Health Care Education/Training Program
DX: S37.009A Unspecified injury of unspecified kidney, initial encounter (principal); N17.9 Acute kidney failure, unspecified; K74.60 Unspecified cirrhosis of liver; E87.1 Hypo-osmolality and hyponatremia; R11.2 Nausea with vomiting, unspecified; X58.XXXA Exposure to other specified factors, initial encounter; Y93.89 Activity, other specified; Y92.89 Other specified places as the place of occurrence of the external cause; Y99.8 Other external cause status
CPT/HCPCS: J2405

== ENCOUNTER 2020-01-18 22:04 | Emergency (ER) | payer OTHER ==
[~2020-01-18] VITALS: Ht 175.3 cm; Wt 91.3 kg
[2020-01-18 22:16] VITALS: Ht 175.3 cm; Wt 91.3 kg
[2020-01-19 00:10] LABS: CALCIUM 9.3 mg/dL (8.5-10.1); CARBON DIOXIDE 27.5 mmol/L (21-32); CHLORIDE SERUM 103 mmol/L (98-107); CREATININE SERUM 1.4 mg/dL (0.7-1.3); GFR1 > 60 mL/min; GLUCOSE SERUM 90 mg/dL (74-106); SODIUM SERUM 136 mmol/L (136-145)
[2020-01-19 00:14] LABS: ALBUMIN 3.5 g/dL (3.4-5.0); ALKALINE PHOSPHATASE 170 U/L (46-116); ALT/SGPT 26 U/L (16-63); AST/SGOT 45 U/L (15-37); LIPASE 197 IU/L (73-393)
[2020-01-19 00:15] LABS: BASOPHIL % 0.4 % (0-2); RED CELL DISTRIBUTION WIDTH 13.5 % (11.5-14.5)
[2020-01-19 00:20] LABS: PLATELET COUNT 122 x10^3mcL (130-400)
[2020-01-19 01:11] VITALS: BP 124/70
== END 2020-01-19 01:11 | disposition home or self-care (01) ==
LOC: ED 22:04
PROVIDERS: Student in an Organized Health Care Education/Training Program
DX: K29.70 Gastritis, unspecified, without bleeding (principal); R04.0 Epistaxis; K70.9 Alcoholic liver disease, unspecified; I12.9 Hypertensive chronic kidney disease with stage 1 through stage 4 chronic kidney disease, or unspecified chronic kidney disease; N18.9 Chronic kidney disease, unspecified
CPT/HCPCS: Q0162

== ENCOUNTER 2020-02-09 13:54 | Emergency (ER) | payer OTHER ==
[~2020-02-09] VITALS: Ht 175.3 cm; Wt 90.3 kg
[2020-02-09 14:17] VITALS: Ht 175.3 cm; Wt 90.3 kg
[2020-02-09 15:15] LABS: BASOPHIL % 0.5 % (0-2); PLATELET COUNT 131 x10^3mcL (130-400); RED CELL DISTRIBUTION WIDTH 13.6 % (11.5-14.5)
[2020-02-09 15:42] LABS: CALCIUM 9.6 mg/dL (8.5-10.1); CARBON DIOXIDE 24.3 mmol/L (21-32); CHLORIDE SERUM 105 mmol/L (98-107); CREATININE SERUM 1.2 mg/dL (0.7-1.3); GFR1 > 60 mL/min; GLUCOSE SERUM 93 mg/dL (74-106); POTASSIUM SERUM 3.5 mmol/L (3.5-5.1); SODIUM SERUM 139 mmol/L (136-145)
[2020-02-09 15:46] LABS: ALBUMIN 3.5 g/dL (3.4-5.0); ALKALINE PHOSPHATASE 164 U/L (46-116); ALT/SGPT 32 U/L (16-63); AST/SGOT 44 U/L (15-37); BILIRUBIN TOTAL 3.57 mg/dL (0.20-1.00); LIPASE 116 IU/L (73-393); TOTAL PROTEIN, SERUM 7.9 g/dL (6.4-8.2)
[2020-02-09 17:57] VITALS: BP 101/62
== END 2020-02-09 17:57 | disposition home or self-care (01) ==
LOC: ED 13:54
PROVIDERS: Emergency Medicine
DX: K74.60 Unspecified cirrhosis of liver (principal); I10 Essential (primary) hypertension; Z90.49 Acquired absence of other specified parts of digestive tract
CPT/HCPCS: J2270; J2405; Q0092

== ENCOUNTER 2020-04-13 13:17 | Emergency (ER) | payer OTHER, SELFPAY ==
[~2020-04-13] VITALS: Ht 175.3 cm; Wt 90.7 kg
[2020-04-13 13:20] VITALS: Ht 175.3 cm; Wt 90.7 kg
[2020-04-13 14:30] VITALS: BP 126/78
== END 2020-04-13 14:30 | disposition home or self-care (01) ==
LOC: ED 13:17
DX: R43.9 Unspecified disturbances of smell and taste (principal); I10 Essential (primary) hypertension; K70.30 Alcoholic cirrhosis of liver without ascites; Z20.828 Contact with and (suspected) exposure to other viral communicable diseases; Z90.49 Acquired absence of other specified parts of digestive tract
CPT/HCPCS: U0003

== ENCOUNTER 2020-04-24 16:03 | Emergency (ER) | payer OTHER ==
[~2020-04-24] VITALS: Ht 175.3 cm; Wt 90.7 kg
[2020-04-24 17:11] VITALS: Ht 175.3 cm; Wt 90.7 kg
[2020-04-24 17:45] LABS: PLATELET COUNT 65 x10^3mcL (152-348); RED CELL DISTRIBUTION WIDTH 15.2 % (12.1-16.2)
[2020-04-24 18:02] LABS: CALCIUM 8.8 mg/dL (8.5-10.1); CARBON DIOXIDE 24.1 mmol/L (21-32); CREATININE SERUM 1.6 mg/dL (0.7-1.3); POTASSIUM SERUM 4.1 mmol/L (3.5-5.1)
[2020-04-24 18:06] LABS: BILIRUBIN TOTAL 4.3 mg/dL (0.20-1.00)
[2020-04-24 18:07] LABS: TOTAL PROTEIN, SERUM 9.3 g/dL (6.4-8.2)
[2020-04-24 19:42] LABS: BAND NEUTROPHIL 3 % (0-10); METAMYELOCTE 1 % (0-2); MONOCYTE 9 % (0-7); SEGMENTED NEUTROPHILS 52 % (37-75)
[2020-04-24 19:44] LABS: PLATELET MORPHOLOGY PLATELETS DECREASED; rbc morphology (normal/abnorm) NORMAL (NORMAL)
[2020-04-24 21:16] VITALS: BP 135/75
== END 2020-04-24 21:12 | disposition home or self-care (01) ==
LOC: ED 16:03
PROVIDERS: Emergency Medicine
DX: U07.1 COVID-19 (principal); D69.6 Thrombocytopenia, unspecified; D72.819 Decreased white blood cell count, unspecified; B34.9 Viral infection, unspecified; I10 Essential (primary) hypertension; K70.30 Alcoholic cirrhosis of liver without ascites
CPT/HCPCS: Q0162; U0003